=== PATIENT | female | born 1970 | race Caucasian/White ===

== ENCOUNTER 2016-06-02 11:59 | Inpatient (IN) | payer BC ==
[~2016-06-02 11:59] MED LIST: MELATONIN10 M6 PO; MOTRIN800 MG PO; SAVELLA50 MG PO
[2016-06-02] MEDS ORDERED: CYMBALTA60 M1 PO (12:44)
[2016-06-02] MEDS ORDERED: BENTYL10 M1 PO (12:45)
[2016-06-02] MEDS ORDERED: ESTRODIAL (12:46)
[2016-06-02] MEDS ORDERED: VITAMIN B-12250 MC2 PO (12:47)
[2016-06-02] MEDS ORDERED: VITAMIN D31000 UNI3 PO (12:48)
[2016-06-02] MEDS ORDERED: LOVAZA1 GM/CAP PO (12:48)
[2016-06-02 18:50] LABS: BASO % 0.3 % (0-2); EOS % 3.1 % (0-7); EOSINOPHIL ABSOLUTE COUNT 0.3 tho/cmm (0.0-0.7); HCT-HEMATOCRIT 40.1 % (34.0-49.0); HGB-HEMOGLOBIN 13.6 gm/dl (12.0-15.5); IMMATURE GRANULOCYTES ABSOLUTE 0.01 tho/cmm (0-0.03); IMMATURE GRANULOCYTES PERCENT 0.1 % (0-0.3); LYMPH % 30.5 % (20-45); LYMPH ABSOLUTE COUNT 2.4 tho/cmm (0.8-4.5); MCH (MEAN CORPUSCULAR HGB) 30.8 pg (28.0-32.0); MCHC MEAN CORPUSCULAR HGB CONC 33.9 % (32.0-36.0); MCV (MEAN CELL VOLUME) 90.9 fl (82.0-96.0); MEAN PLATELET VOLUME 8.8 cmc (9.4-12.4); MONO % 6.1 % (0-12); MONOCYTE ABSOLUTE COUNT 0.5 tho/cmm (0.0-1.2); NEUTROPHIL ABSOLUTE COUNT 4.8 tho/cmm (1.6-8.0); NEUTROPHIL-AUTOMATED 4.8 tho/cmm (1.6-8.0); NEUTROPHILS % 59.9 % (40-80); PLATELET COUNT 414 tho/cmm (150-450); RED BLOOD COUNT 4.41 mil/cmm (4.00-5.20); RED CELL DISTRIBUTION WIDTH 13.1 % (12.4-16.4)
[2016-06-02 19:07] LABS: ESR-ERYTHROCYTE SED RATE 43 mm/hr (0-20)
[2016-06-02 19:08] LABS: ALB/GLOB RATIO 1.4 (0.8-2.0); ALBUMIN 4.2 g/dl (3.5-5.2); ALKALINE PHOSPHATASE 91 U/L (35-104); ALT/SGPT 14 U/L (0-33); ANION GAP 13 mmol/L (5-15); AST/SGOT 14 U/L (0-32); BILIRUBIN,TOTAL 0.2 mg/dl (0-1.0); BLOOD UREA NITROGEN 16 mg/dl (6-25); C-REACTIVE PROTEIN 0.8 mg/dl (0-0.5); CALCIUM 9.8 mg/dl (8.6-10.2); CARBON DIOXIDE-VENOUS 26 mmol/L (22-29); CHLORIDE 99 mmol/L (98-110); CREATININE 0.82 mg/dl (0.67-1.17); GLUCOSE 122 mg/dl (65-120); POTASSIUM 3.8 mmol/L (3.4-5.0); SODIUM 138 mmol/L (135-146); eGFR VALUE FOR BLACK >60 mL/Min
[2016-06-03 05:01] LABS: BASO % 0.5 % (0-2); EOS % 4.6 % (0-7); EOSINOPHIL ABSOLUTE COUNT 0.3 tho/cmm (0.0-0.7); HCT-HEMATOCRIT 37.7 % (34.0-49.0); HGB-HEMOGLOBIN 12.7 gm/dl (12.0-15.5); LYMPH % 37.4 % (20-45); LYMPH ABSOLUTE COUNT 2.4 tho/cmm (0.8-4.5); MCH (MEAN CORPUSCULAR HGB) 30.8 pg (28.0-32.0); MCHC MEAN CORPUSCULAR HGB CONC 33.7 % (32.0-36.0); MCV (MEAN CELL VOLUME) 91.3 fl (82.0-96.0); MEAN PLATELET VOLUME 8.8 cmc (9.4-12.4); MONO % 8.6 % (0-12); MONOCYTE ABSOLUTE COUNT 0.6 tho/cmm (0.0-1.2); NEUTROPHIL ABSOLUTE COUNT 3.2 tho/cmm (1.6-8.0); NEUTROPHIL-AUTOMATED 3.2 tho/cmm (1.6-8.0); NEUTROPHILS % 48.9 % (40-80); PLATELET COUNT 371 tho/cmm (150-450); RED BLOOD COUNT 4.13 mil/cmm (4.00-5.20); RED CELL DISTRIBUTION WIDTH 13.1 % (12.4-16.4); WHITE BLOOD COUNT 6.5 tho/cmm (4.0-10.0)
[2016-06-04 07:24] LABS: BASO % 0.4 % (0-2); EOSINOPHIL ABSOLUTE COUNT 0.3 tho/cmm (0.0-0.7); HCT-HEMATOCRIT 38.5 % (34.0-49.0); HGB-HEMOGLOBIN 12.8 gm/dl (12.0-15.5); LYMPH ABSOLUTE COUNT 1.8 tho/cmm (0.8-4.5); MCH (MEAN CORPUSCULAR HGB) 30.3 pg (28.0-32.0); MCHC MEAN CORPUSCULAR HGB CONC 33.2 % (32.0-36.0); MCV (MEAN CELL VOLUME) 91.2 fl (82.0-96.0); MEAN PLATELET VOLUME 8.8 cmc (9.4-12.4); MONO % 8.1 % (0-12); MONOCYTE ABSOLUTE COUNT 0.6 tho/cmm (0.0-1.2); NEUTROPHIL ABSOLUTE COUNT 4.2 tho/cmm (1.6-8.0); NEUTROPHIL-AUTOMATED 4.2 tho/cmm (1.6-8.0); NEUTROPHILS % 61.5 % (40-80); PLATELET COUNT 406 tho/cmm (150-450); RED BLOOD COUNT 4.22 mil/cmm (4.00-5.20); RED CELL DISTRIBUTION WIDTH 12.7 % (12.4-16.4); WHITE BLOOD COUNT 6.8 tho/cmm (4.0-10.0)
[2016-06-04 07:48] LABS: ESR-ERYTHROCYTE SED RATE 45 mm/hr (0-20)
[2016-06-04 08:11] LABS: ANION GAP 16 mmol/L (5-15); BLOOD UREA NITROGEN 11 mg/dl (6-25); C-REACTIVE PROTEIN 0.6 mg/dl (0-0.5); CALCIUM 9.2 mg/dl (8.6-10.2); CARBON DIOXIDE-VENOUS 24 mmol/L (22-29); CHLORIDE 98 mmol/L (98-110); CREATININE 0.73 mg/dl (0.67-1.17); GLUCOSE 122 mg/dl (65-120); SODIUM 138 mmol/L (135-146); eGFR VALUE FOR BLACK >60 mL/Min
[2016-06-04 08:21] LABS: POTASSIUM 4.8 mmol/L (3.4-5.0)
[2016-06-04] MEDS ORDERED: VIBRAMYCIN100 M1 PO (13:10)
[2016-06-04] MEDS ORDERED: AUGMENTIN 875-1 EAC2 PO (13:21)
[2016-06-04] MEDS ORDERED: VISTARIL25 M1 PO (13:24)
[2016-07-05] MEDS ORDERED: VIBRAMYCIN100 M1 PO (04:57)
[2016-07-05] MEDS ORDERED: AUGMENTIN 875-1 EAC2 PO (04:57)
[2016-07-05] MEDS ORDERED: PERCOCET 5-3251 EACH PO (04:57)
== END 2016-06-04 14:55 | DRG 603 ==
LOC: 5EC 11:59
PROVIDERS: Internal Medicine Cardiovascular Disease; Nurse Practitioner; ADMIT Internal Medicine
PROC: 05HC33Z Insertion of Infusion Device into Left Basilic Vein, Percutaneous Approach (ICD-10-PCS; principal; 2016-06-03)
PROC: B54NZZA Ultrasonography of Left Upper Extremity Veins, Guidance (ICD-10-PCS; 2016-06-03)
DX: L03.113 Cellulitis of right upper limb (principal); B96.89 Other specified bacterial agents as the cause of diseases classified elsewhere; E11.9 Type 2 diabetes mellitus without complications; E04.1 Nontoxic single thyroid nodule; E78.5 Hyperlipidemia, unspecified; M79.7 Fibromyalgia; K21.9 Gastro-esophageal reflux disease without esophagitis
CPT/HCPCS: C1751; J3370; J7030